=== PATIENT | male | born 2005 | race Caucasian/White ===

== ENCOUNTER 2023-06-06 18:48 | Emergency (ER) | payer MEDICAID ==
[2023-06-06 19:05] VITALS: BP 146/94; O2SAT 100
--- NOTE | 2023-06-06 19:48 | ED Physician Documentation ---
PD HPI LOWER EXT INJURY - Stated complaint Stated Complaint: LT FOOT PX - Chief complaint Chief Complaint: Ext Problem - History obtained from History obtained from: Patient - Additional information Additional information: HPI from patient. Patient complains of left foot pain, sudden onset 2 days ago when he stepped on a screw. The screw pierced through his footwear (flip-flop). The pain has steadily worsened since the injury, and has gradually become associated with focal swelling and erythema since this morning. Pain is worse with palpation, weight-bearing. The patient is confident the screw remained intact on inspection after he had stepped on it Review of Systems Constitutional: denies: Fever Musculoskeletal: reports: Extremity pain, Pain with weight bearing PD PAST MEDICAL HISTORY - Past Medical History Past Medical History: No - Past Surgical History Past Surgical History: No - Present Medications Home Medications: Ambulatory Orders Medication Instructions Recorded Confirmed Ciprofloxacin HCl [Cipro] 500 mg PO BID #20 tablet 06/06/23 - Allergies Allergies/Adverse Reactions: Allergies Allergy/AdvReac Type Severity Reaction Status Date / Time No Known Drug Allergies Allergy Verified 06/06/23 19:05 - Social History Does the pt smoke?: No Smoking Status: Never smoker - Immunizations Immunizations: TDAP >10years/unknown PD ED PE NORMAL - Vitals Vital signs reviewed: Yes - General General: Alert and oriented X 3, No acute distress, Well developed/nourished PD ED PE EXPANDED - Extremities Feet visual: 1 - rash (2-3mm puncture with mild surrounding erythema and swelling. No visible FB, no discharge, no fluctuance), swelling, tenderness Results - Vitals Vitals: Vital Signs - 24 hr 06/06/23 18:58 Temperature 36.6 C Heart Rate 90 Respiratory 16 Rate Blood Pressure 146/94 H O2 Saturation 100 Oxygen O2 Source Room air PD Medical Decision Making - ED course Complexity details: considered differential, d/w patient Departure - Departure Disposition: 01 Home, Self Care Clinical Impression: Puncture wound of foot Qualifiers: Encounter type: initial encounter Laterality: left Qualified Code(s): S91.332A - Puncture wound without foreign body, left foot, initial encounter Condition: Good Instructions: ED Wound Puncture General, ED Immunization Tetanus and FU Prescriptions: Ciprofloxacin HCl [Cipro] 500 mg PO BID #20 tablet Comments: You are given the first dose of an antibiotic (ciprofloxacin) in the emergency department, and I have electronically submitted a prescription for 10-day course of this antibiotic to the right [facility] in [place]. This antibiotic should cover the bacteria that would typically be associated with an infection in this scenario (puncture injury to the foot through foot where). Follow-up with your primary care provider in 3 to 5 days for reevaluation. Forms: PCP List
[2023-06-06] MEDS: CIPROFLOXACIN 250 MG TABLET PO STA (20:08)
[2023-06-06] MEDS: TETANUS/DIPHTHERIA/PERTUSSIS 0.5 ML SYRINGE IM ONE (20:08)
== END 2023-06-06 20:45 | disposition home or self-care (01) ==
LOC: ED 18:48
DX: S91.332A Puncture wound without foreign body, left foot, initial encounter (principal); W22.8XXA Striking against or struck by other objects, initial encounter; Z23 Encounter for immunization
CPT/HCPCS: 90471; 90715; 99283; A9270